=== PATIENT | female | born 1965 | race Caucasian/White ===

== ENCOUNTER → 2021-03-18 | Outpatient (CLI) | payer BC | LOC: SJCVCIMAG 07:44 | PROVIDERS: ATTEND Internal Medicine | DX: I10 Essential (primary) hypertension (principal); E78.5 Hyperlipidemia, unspecified; Z01.810 Encounter for preprocedural cardiovascular examination ==

== ENCOUNTER → 2021-04-22 | Outpatient (CLI) | payer BC ==
[~2021-04-22] MED LIST: LIPITOR40 MG PO; LOSARTAN-HCTZ1 EACH PO; NORVASC 2.5 MG2.5 M1 PO; PROZAC20 MG PO
[2021-04-22 13:30] VITALS: BP 115/65
--- NOTE | 2021-04-22 13:47 | LINQ ---
[facility] [place] [address] LINQ PROCEDURE REPORT Name: JOE PEREZ Room #: REG EREN Godinez#: [id number] Admission: 04/22/21 Attend Phys: Giovani Molina Discharge: Date of : 65 Report #: [id number] THIS REPORT FOR: cc: Linda Torres MD, Cora A. MD Lammoglia, Francisco J. MD ~ APPROVED REPORT Patient Location: Out-Patient Room #: Stress Nurse: Bucktiffanie HILARIO. SN:[id number]. REF: [id number]. Use by 12-21-2021. 10cc Lidocaine used for the procedure. Procedure: Insertion of a implantable loop recorder Indications: 56-year-old female patient with palpitations near syncope and negative event monitor Brief description procedure: After informed consent was obtained the patient brought to the cardiac catheterization laboratory prepped and hold. The left chest was prepped and draped in usual sterile manner. Utilizing 1% lidocaine a small wheal was raised and subsequent anesthetize agent of the proposed insertion tract. Utilizing both sharp and blunt dissection after an 11 blade was utilized to make a small incision a tract was developed. Utilizing the enclosed deployment tool the device was deployed without difficulty. Subcutaneous tissue was closed in simple interrupted sutures and the skin was closed with a running absorbable subcuticular. Dermabond 4 x 4's Steri-Strips were utilized and the entire dressing covered with OpSite. Patient tolerated procedure well there was no complications Estimated blood loss: 0 Conclusion [facility] [address] [place] [address] LINQ PROCEDURE REPORT Name: JOE PEREZ Karly [facility] #: [id number] Admission: 04/22/21 Attend Phys: Giovani Dotson Discharge: Date of : 65 Report #: [id number] 1. Successful insertion of a implantable loop recorder 2. Patient will proceed per standard post insertion protocol <ELECTRONICALLY SIGNED> By: Giovani Molina MD 04/22/21 1346 1346 1346 Giovani Molina MD /INF
== END | disposition home or self-care (01) ==
LOC: CATH 06:54
PROVIDERS: ATTEND Internal Medicine
DX: Z45.09 Encounter for adjustment and management of other cardiac device (principal); R00.2 Palpitations; R55 Syncope and collapse; Z98.890 Other specified postprocedural states; Z79.899 Other long term (current) drug therapy

== ENCOUNTER → 2021-07-12 | Outpatient (CLI) | payer BC ==
[2021-07-12 10:20] VITALS: BP 133/75
--- NOTE | 2021-07-22 22:26 | CATHLAB ---
[facility] [place] [address] INVASIVE PROCEDURE REPORT Name: JOE PEREZ Room #: REG EREN Herbert#: [id number] Admission: 07/12/21 Attend Phys: Giovani Molina Discharge: Date of : 65 Report #: [id number] THIS REPORT FOR: cc: Linda Torres MD, Cora A. MD Lammoglia, Francisco J. MD ~ APPROVED REPORT Study performed: 07/12/2021 13:59:17 Patient Status: Out-Patient Room #: Event Personnel: Giovani Molina MD Exam: Linq removal Indications: patient request to have removed secondary pain from device The patient is a 56 year-old female with a history of pa;pitations. Explanted Devices: [employer] LINQ Procedure The patient underwent informed consent. We discussed the details of the procedure including the risks, which include, but not limited to bleeding, infection, vascular damage, cardiac perforation, and pneumothorax. She understood these risks and was willing to proceed. As such, was brought to the EP/Cardiac Catheterization laboratory in a fasting and sedated state and prepped and draped in a The device was identified and locsation marked. The chest was prepped and draped in usual sterile manor. Utilizing 1% lidocaine the proposed incision site was instilled. An eleven blade was used to make an incision and utilizing sharp and blunt dissection the pocket was accesed. The device was gripped with a clarita and delivered with some difficulty. pocket was obliterated with 3-0 suture in figure of eight stitch. skin closed with subcuticular stitch. steri strips 4x4 and op site utilized Complications The patient tolerated the procedure well and there were no complications associated with the procedure. Findings Estimated Blood Loss: 15cc [facility] [address] [address] INVASIVE PROCEDURE REPORT Name: JOE PEREZ Room #: REG [facility]#: [id number] Admission: 07/12/21 Attend Phys: Giovani Dotson Discharge: Date of : 65 Report #: [id number] Conclusion 1. Successful removal of [employer] LINQ device Recommendations 1. Routine post removal protocol <ELECTRONICALLY SIGNED> By: Giovani Molina MD 07/22/212225 25 25 Giovani Molina MD /INF
== END | disposition home or self-care (01) ==
LOC: CATH 07:21
PROVIDERS: ATTEND Internal Medicine
DX: Z45.09 Encounter for adjustment and management of other cardiac device (principal); R00.2 Palpitations; Z98.890 Other specified postprocedural states; Z79.899 Other long term (current) drug therapy